=== PATIENT | male | born 1975 | race American Indian/Alaskan Native ===

== ENCOUNTER 2019-01-15 15:00 | Outpatient (CLI) | payer BC ==
[2019-01-15 15:12] LABS: Bilirubin,Urine NEG (Negative); Blood,Urine SM (Negative); Color,Urine Yellow (Yellow); Mucus,Urine FEW /HPF; Protein,Urine <15 mg/dL mg/dL (Negative); Urobilinogen,Urine < 2.0 mg/dL (<2.0); WBC,Urine < 1.0 /HPF (0.0-6.0)
[2019-01-15 15:37] LABS: Alanine Aminotransferase 33 units/L (7-56); Albumin 4.3 g/dL (3.9-5); BUN/Creatinine Ratio 14; Blood Urea Nitrogen 13 mg/dL (9-20); Calcium 8.8 mg/dL (8.4-10.2); Hemolysis Index 6
[2019-01-15 16:28] LABS: Hepatitis C Virus Antibody Non-Reactive (NonReactive)
[2019-01-15 17:13] LABS: Hepatitis B Surface Antigen Non-Reactive (Negative)
== END 2019-01-15 15:01 | disposition home or self-care (01) ==
LOC: LAB 15:00
PROVIDERS: ATTEND Internal Medicine
DX: N39.0 Urinary tract infection, site not specified (principal)
CPT/HCPCS: 36415; 80053; 80074; 81001

== ENCOUNTER 2019-01-15 15:19 | Outpatient (CLI) | payer BC ==
--- NOTE | 2019-01-16 13:46 | Ultrasound Report ---
PROCEDURE: US ABDOMEN LIMITED TECHNIQUE: Transverse longitudinal sonograms obtained right upper quadrant HISTORY: RIGHT UPPER QUADRANT PAIN, ULTRASOUND OF LIVER COMPARISONS: None FINDINGS: Liver demonstrates normal echogenicity without focal lesion. Gallbladder demonstrates small amount of sludge. Normal wall thickness. No cholelithiasis. Tiny echog enic foci which may represent cholesterol polyp. No biliary dilatation. Common bile duct diameter 0.4 cm Visualized pancreas unremarkable. Right kidney measures 1.0 x 4.4 x 5.4 cm. Normal cortical thickness and echogenicity. No hydronephros is. No free fluid IMPRESSION: Gallbladder demonstrates sludge and cholesterol polyp. No sonographic evidence of acute cholecystitis No biliary dilatation. No right hydronephrosis No free fluid. This document is electronically signed by Anirudh Sarabia MD., Jan 16 2019 01:43:46 PM ET
== END 2019-01-15 15:20 | disposition home or self-care (01) ==
LOC: US 15:19
PROVIDERS: ATTEND Internal Medicine
DX: K82.4 Cholesterolosis of gallbladder (principal)
CPT/HCPCS: 36415; 76705; 80053; 80074; 81001